=== PATIENT | female | born 1985 ===

== ENCOUNTER 2019-06-05 22:37 | Inpatient (IN) | payer BC ==
[~2019-06-05] VITALS: Ht 165.1 cm; Wt 94.5 kg
[2019-06-05] MEDS ORDERED: SODIUM CHLORIDE 0.45% 1,000 ML IV PRN (23:55)
[2019-06-06] MEDS ORDERED: DEXAMETHASONE 4 MG/ML, 5ML IM SCH
[2019-06-06] MEDS ORDERED: CALCIUM GLUCONATE 4.6 MEQ/10 ML IV PRN
[2019-06-06] MEDS ORDERED: MAGNESIUM SULFATE PMX 2GM/50ML 50 ML IVPB ONE
[2019-06-06] MEDS ORDERED: MAGNESIUM SULFATE PMX 4GM/100M 100 ML IVPB ONE
[2019-06-06 00:01] LABS: BASOPHILS # (AUTO) 0.02 x10^3/uL (0-0.1); BASOPHILS % (AUTO) 0 % (0-1); EOSINOPHILS # (AUTO) 0.14 x10^3/uL (0-0.4); EOSINOPHILS % (AUTO) 1 % (1-7); LYMPHOCYTES % (AUTO) 26 % (22-44); MD NO; MEAN CORPUSCULAR HEMOGLOBIN 31.5 pg (27.0-34.8); MEAN CORPUSCULAR HGB CONC 33.6 g/dL (32.4-35.8); MEAN CORPUSCULAR VOLUME 93.8 fL (80-100); MEAN PLATELET VOLUME 10.1 fL (7.4-10.4); MONOCYTES # (AUTO) 0.72 x10^3/uL (0.2-0.8); MONOCYTES % (AUTO) 6 % (2-9); NEUTROPHILS # (AUTO) 7.52 x10^3/uL (1.8-6.8); NEUTROPHILS % (AUTO) 66 % (42-75); PLATELET COUNT 177 x10^3/uL (130-400); RED BLOOD COUNT 4.42 x10^6/uL (3.82-5.3)
[2019-06-06] MEDS ORDERED: MAGNESIUM SULF. PMX 20GM/500ML 500 ML IV ONE ×3 (00:06→16:52)
[2019-06-06 00:08] LABS: ALANINE AMINOTRANSFERASE 16 U/L (12-78); ALBUMIN 2.4 g/dL (3.4-5.0); ANION GAP 8 mmol/L (5-15); CALCIUM 9.4 mg/dL (8.5-10.1); CHLORIDE 108 mmol/L (98-107); CREATININE 0.51 mg/dL (0.55-1.02)
[2019-06-06 00:12] LABS: ALKALINE PHOSPHATASE 101 U/L (45-117); BILIRUBIN,TOTAL 0.2 mg/dL (0.2-1.0); TOTAL PROTEIN 5.7 g/dL (6.4-8.2)
[2019-06-06] MEDS ORDERED: BETAMETHASONE 6 MG/ML, 5ML IM ONE ×2 (00:13)
[2019-06-06] MEDS ORDERED: PROMETHAZINE 25MG TABLET PO PRN (00:30)
[2019-06-06] MEDS ORDERED: ONDANSETRON ODT 4 MG PO PRN (00:30)
[2019-06-06] MEDS: BETAMETHASONE 6 MG/ML, 5ML IM SCH (00:38)
[2019-06-06] MEDS: LACTATED RINGERS 1,000 ML IV PRN ×3 (00:39→23:51)
[2019-06-06] MEDS: MAGNESIUM SULF. PMX 20GM/500ML 500 ML IV SCH ×3 (00:43→16:56)
[2019-06-06] MEDS ORDERED: ONDANSETRON 2MG/ML, 2ML ONE ×3 (00:56→09:51)
[2019-06-06] MEDS: ONDANSETRON 2MG/ML, 2ML IVPush PRN ×2 (00:59→09:54)
[2019-06-06] MEDS ORDERED: LABETALOL 100 MG TABLET ONE (07:52)
[2019-06-06] MEDS ORDERED: PRENATAL VIT/IRON/FA 1 EACH TABLET ONE (07:52)
[2019-06-06] MEDS: FOLIC ACID 1 MG TABLET PO SCH (08:19)
[2019-06-06] MEDS: LABETALOL 100 MG TABLET PO SCH ×2 (08:19→18:00)
[2019-06-06] MEDS: PRENATAL VIT/IRON/FA 1 EACH TABLET PO SCH (08:20)
[2019-06-06] MEDS ORDERED: CITALOPRAM 20 MG TABLET PO SCH (09:00)
[2019-06-06 17:18] LABS: BASOPHILS # (AUTO) 0.03 x10^3/uL (0-0.1); BASOPHILS % (AUTO) 0 % (0-1); EOSINOPHILS % (AUTO) 0 % (1-7); LYMPHOCYTES % (AUTO) 10 % (22-44); MD NO; MEAN CORPUSCULAR HEMOGLOBIN 31.5 pg (27.0-34.8); MEAN CORPUSCULAR HGB CONC 33.4 g/dL (32.4-35.8); MEAN CORPUSCULAR VOLUME 94.3 fL (80-100); MONOCYTES # (AUTO) 0.46 x10^3/uL (0.2-0.8); MONOCYTES % (AUTO) 3 % (2-9); NEUTROPHILS # (AUTO) 11.54 x10^3/uL (1.8-6.8); NEUTROPHILS % (AUTO) 86 % (42-75); PLATELET COUNT 192 x10^3/uL (130-400); RED BLOOD COUNT 4.87 x10^6/uL (3.82-5.3); RED CELL DISTRIBUTION WIDTH 13.9 % (9.6-15.2)
[2019-06-06 17:27] LABS: ALANINE AMINOTRANSFERASE 16 U/L (12-78); ALBUMIN 2.9 g/dL (3.4-5.0); ANION GAP 8 mmol/L (5-15); CALCIUM 8.9 mg/dL (8.5-10.1); CHLORIDE 107 mmol/L (98-107)
[2019-06-06 17:30] LABS: ALKALINE PHOSPHATASE 120 U/L (45-117); BILIRUBIN,TOTAL 0.3 mg/dL (0.2-1.0); CREATININE 0.69 mg/dL (0.55-1.02); TOTAL PROTEIN 6.6 g/dL (6.4-8.2)
[2019-06-06] MEDS ORDERED: ACETAMINOPHEN 325 MG TABLET ONE (18:11)
[2019-06-06] MEDS: ACETAMINOPHEN 325 MG TABLET PO PRN (18:13)
[2019-06-06] MEDS: CITALOPRAM 20 MG TABLET PO SCH (21:04)
[2019-06-06 21:06] VITALS: BP 139/80
[2019-06-07] MEDS: BETAMETHASONE 6 MG/ML, 5ML IM SCH
[2019-06-07] MEDS ORDERED: MAGNESIUM SULF. PMX 20GM/500ML 500 ML IV ONE ×3 (00:20→15:32)
[2019-06-07] MEDS: MAGNESIUM SULF. PMX 20GM/500ML 500 ML IV SCH ×4 (00:27→17:58)
[2019-06-07 07:31] LABS: BASOPHILS # (AUTO) 0.02 x10^3/uL (0-0.1); BASOPHILS % (AUTO) 0 % (0-1); EOSINOPHILS % (AUTO) 0 % (1-7); LYMPHOCYTES # (AUTO) 1.47 x10^3/uL (1-3.4); LYMPHOCYTES % (AUTO) 10 % (22-44); MD NO; MEAN CORPUSCULAR HEMOGLOBIN 32.1 pg (27.0-34.8); MEAN CORPUSCULAR VOLUME 94.4 fL (80-100); MEAN PLATELET VOLUME 9.9 fL (7.4-10.4); MONOCYTES # (AUTO) 0.37 x10^3/uL (0.2-0.8); MONOCYTES % (AUTO) 3 % (2-9); NEUTROPHILS # (AUTO) 12.67 x10^3/uL (1.8-6.8); NEUTROPHILS % (AUTO) 87 % (42-75); PLATELET COUNT 190 x10^3/uL (130-400); RED BLOOD COUNT 4.49 x10^6/uL (3.82-5.3)
[2019-06-07 07:42] LABS: ALANINE AMINOTRANSFERASE 15 U/L (12-78); ALBUMIN 2.6 g/dL (3.4-5.0); ANION GAP 9 mmol/L (5-15); CHLORIDE 108 mmol/L (98-107); CREATININE 0.57 mg/dL (0.55-1.02)
[2019-06-07 07:44] LABS: ALKALINE PHOSPHATASE 114 U/L (45-117); BILIRUBIN,TOTAL 0.3 mg/dL (0.2-1.0); TOTAL PROTEIN 6.2 g/dL (6.4-8.2)
[2019-06-07] MEDS ORDERED: PRENATAL VIT/IRON/FA 1 EACH TABLET ONE (08:18)
[2019-06-07] MEDS: PRENATAL VIT/IRON/FA 1 EACH TABLET PO SCH (08:19)
[2019-06-07] MEDS ORDERED: ACETAMINOPHEN 325 MG TABLET ONE (10:56)
[2019-06-07] MEDS: ACETAMINOPHEN 325 MG TABLET PO PRN (10:58)
[2019-06-07] MEDS: LACTATED RINGERS 1,000 ML IV PRN (15:37)
[2019-06-07] MEDS ORDERED: niFEDipine ER 30 MG TABLET.ER ONE (15:44)
[2019-06-07] MEDS: niFEDipine ER 30 MG TABLET.ER PO SCH (15:49)
[2019-06-07] MEDS: FOLIC ACID 1 MG TABLET PO SCH (23:23)
[2019-06-07] MEDS: CITALOPRAM 20 MG TABLET PO SCH (23:24)
[2019-06-08] MEDS ORDERED: CALCIUM CARBONATE 500 MG TAB.CHEW ONE (01:22)
[2019-06-08] MEDS ORDERED: CALCIUM CARBONATE 500 MG TAB.CHEW PO PRN (01:30)
[2019-06-08] MEDS ORDERED: MAGNESIUM SULF. PMX 20GM/500ML 500 ML IV ONE ×3 (01:49→17:38)
[2019-06-08] MEDS: MAGNESIUM SULF. PMX 20GM/500ML 500 ML IV SCH ×3 (01:53→17:44)
[2019-06-08] MEDS: LACTATED RINGERS 1,000 ML IV PRN ×2 (07:14→17:45)
[2019-06-08] MEDS ORDERED: PRENATAL VIT/IRON/FA 1 EACH TABLET ONE (12:00)
[2019-06-08] MEDS ORDERED: FOLIC ACID 1 MG TABLET ONE (12:00)
[2019-06-08] MEDS: PRENATAL VIT/IRON/FA 1 EACH TABLET PO SCH (12:05)
[2019-06-08] MEDS: FOLIC ACID 1 MG TABLET PO SCH (12:06)
[2019-06-08] MEDS ORDERED: ONDANSETRON 2MG/ML, 2ML ONE (12:36)
[2019-06-08] MEDS: ONDANSETRON 2MG/ML, 2ML IVPush PRN (12:37)
[2019-06-08] MEDS ORDERED: niFEDipine ER 30 MG TABLET.ER ONE (15:30)
[2019-06-08] MEDS: niFEDipine ER 30 MG TABLET.ER PO SCH (15:50)
[2019-06-08] MEDS ORDERED: MISOPROSTOL 25 MCG TABLET ONE ×2 (18:38→22:42)
[2019-06-08] MEDS ORDERED: FENTANYL/BUPIV./NS/PF 250 ML EPIDCONT SCH (18:56)
[2019-06-08] MEDS ORDERED: MISOPROSTOL 25 MCG TABLET PO PRN ×2 (19:00→23:00)
[2019-06-08] MEDS ORDERED: PENICILLIN GK 5,000,000 UNITS in DEXTROSE 5% 100 ML IVPB ONE (19:00)
[2019-06-08] MEDS ORDERED: FAMOTIDINE 20 MG TABLET ONE (19:37)
[2019-06-08] MEDS: CITALOPRAM 20 MG TABLET PO SCH (19:40)
[2019-06-08] MEDS: FAMOTIDINE 20 MG TABLET PO SCH (19:40)
[2019-06-08] MEDS ORDERED: FENTANYL PF 500 MCG, BUPIVACAINE/PF 0.5%, 30ML 62.5 ML in SODIUM CHLORIDE 0.9% 177.5 ML EPIDCONT SCH (20:00)
[2019-06-08] MEDS ORDERED: PENICILLIN GK 2,500,000 UNITS in DEXTROSE 5% 100 ML IVPB SCH (23:30)
[2019-06-09] MEDS: MAGNESIUM SULF. PMX 20GM/500ML 500 ML IV SCH ×2 (01:16→10:05)
[2019-06-09] MEDS ORDERED: OXYTOCIN 30U/ 0.9% NaCL 500ML 500 ML IV PRN (03:58)
[2019-06-09] MEDS ORDERED: OXYTOCIN 30U/ 0.9% NaCL 500ML 500 ML ONE ×2 (04:02→17:28)
[2019-06-09] MEDS ORDERED: ONDANSETRON 2MG/ML, 2ML ONE ×2 (07:35→18:36)
[2019-06-09] MEDS: ONDANSETRON 2MG/ML, 2ML IVPush PRN ×2 (07:38→18:39)
[2019-06-09] MEDS ORDERED: LACTATED RINGERS 1,000 ML IV SCH (07:59)
[2019-06-09] MEDS ORDERED: EPHEDRINE 50 MG/ML, 1ML IVPush PRN (08:00)
[2019-06-09] MEDS ORDERED: NALOXONE 0.4 MG/ML, 1ML IVPush PRN (08:00)
[2019-06-09] MEDS ORDERED: LACTATED RINGERS 1,000 ML IVBOLUS PRN (08:00)
[2019-06-09 08:14] LABS: BASOPHILS # (AUTO) 0.02 x10^3/uL (0-0.1); BASOPHILS % (AUTO) 0 % (0-1); EOSINOPHILS # (AUTO) 0.13 x10^3/uL (0-0.4); EOSINOPHILS % (AUTO) 1 % (1-7); LYMPHOCYTES # (AUTO) 2.81 x10^3/uL (1-3.4); LYMPHOCYTES % (AUTO) 21 % (22-44); MD NO; MEAN CORPUSCULAR HEMOGLOBIN 32.1 pg (27.0-34.8); MEAN CORPUSCULAR HGB CONC 33.8 g/dL (32.4-35.8); MEAN CORPUSCULAR VOLUME 94.9 fL (80-100); MEAN PLATELET VOLUME 9.1 fL (7.4-10.4); MONOCYTES # (AUTO) 1.08 x10^3/uL (0.2-0.8); MONOCYTES % (AUTO) 8 % (2-9); NEUTROPHILS # (AUTO) 9.31 x10^3/uL (1.8-6.8); NEUTROPHILS % (AUTO) 70 % (42-75); PLATELET COUNT 184 x10^3/uL (130-400); RED BLOOD COUNT 4.65 x10^6/uL (3.82-5.3)
[2019-06-09] MEDS ORDERED: FENTANYL PF 100 MCG/2ML ONE (08:18)
[2019-06-09 08:22] LABS: ALANINE AMINOTRANSFERASE 22 U/L (12-78); ALBUMIN 2.5 g/dL (3.4-5.0); ANION GAP 8 mmol/L (5-15); CALCIUM 7.1 mg/dL (8.5-10.1); CHLORIDE 107 mmol/L (98-107); CREATININE 0.51 mg/dL (0.55-1.02)
[2019-06-09 08:24] LABS: ALKALINE PHOSPHATASE 111 U/L (45-117); BILIRUBIN,TOTAL 0.4 mg/dL (0.2-1.0); TOTAL PROTEIN 5.9 g/dL (6.4-8.2)
[2019-06-09] MEDS ORDERED: EPINEPHRINE IV SCH (08:30)
[2019-06-09] MEDS ORDERED: FENTANYL PF 100 MCG/2ML IVPush PRN (08:30)
[2019-06-09] MEDS ORDERED: [UNRECOGNIZED DRUG - OTHER] IV SCH (08:30)
[2019-06-09] MEDS ORDERED: SODIUM CHLORIDE IV SCH (08:30)
[2019-06-09] MEDS ORDERED: BUPIVACAINE IV SCH (08:30)
[2019-06-09] MEDS ORDERED: FENTANYL IV SCH (08:30)
[2019-06-09] MEDS: LACTATED RINGERS 1,000 ML IVBOLUS PRN (08:43)
[2019-06-09] MEDS ORDERED: LIDOCAINE/PF 1.5% EPI 1:200K, 10 ML ONE (08:57)
[2019-06-09] MEDS ORDERED: BUPIVACAINE 0.25% ONE (08:57)
[2019-06-09] MEDS: PENICILLIN GK 2,500,000 UNITS in DEXTROSE 5% 100 ML IVPB SCH ×2 (09:08→14:04)
[2019-06-09] MEDS ORDERED: MAGNESIUM SULF. PMX 20GM/500ML 500 ML IV ONE (09:29)
[2019-06-09] MEDS ORDERED: EPHEDRINE 50 MG/ML, 1ML ONE (09:51)
[2019-06-09] MEDS ORDERED: OXYTOCIN 30U/ 0.9% NaCL 500ML 500 ML IV SCH (17:08)
[2019-06-09] MEDS ORDERED: ACETAMINOPHEN 325 MG TABLET PO PRN (17:30)
[2019-06-09] MEDS ORDERED: CARBOPROST TROMETHAMINE 250 MCG/ML, 1ML IM PRN (17:30)
[2019-06-09] MEDS ORDERED: SIMETHICONE 80 MG CHEW TAB PO PRN (17:30)
[2019-06-09] MEDS ORDERED: OXYcodone IR 5MG TABLET PO PRN (17:30)
[2019-06-09] MEDS ORDERED: MISOPROSTOL 200 MCG TABLET PR PRN (17:30)
[2019-06-09] MEDS ORDERED: NEWBORN KIT ONE (17:37)
[2019-06-09] MEDS ORDERED: OXYcodone IR 5MG TABLET ONE (20:04)
[2019-06-09] MEDS ORDERED: FAMOTIDINE 20 MG TABLET ONE (22:37)
[2019-06-09] MEDS ORDERED: DOCUSATE 100 MG CAPSULE ONE (22:37)
[2019-06-09] MEDS: FAMOTIDINE 20 MG TABLET PO SCH (22:40)
[2019-06-09] MEDS: CITALOPRAM 20 MG TABLET PO SCH (22:41)
[2019-06-09] MEDS ORDERED: niFEDipine ER 30 MG TABLET.ER ONE (22:52)
[2019-06-09] MEDS: niFEDipine ER 30 MG TABLET.ER PO SCH (22:53)
[2019-06-09] MEDS ORDERED: OXYcodone/APAP 5/325MG TABLET ONE (23:11)
[2019-06-09] MEDS: OXYcodone/APAP 5/325MG TABLET PO PRN (23:19)
[2019-06-10] MEDS: MAGNESIUM SULF. PMX 20GM/500ML 500 ML IV SCH ×2 (01:28→09:52)
[2019-06-10] MEDS ORDERED: OXYTOCIN 30U/ 0.9% NaCL 500ML 500 ML ONE (02:54)
[2019-06-10] MEDS: LACTATED RINGERS 1,000 ML IVBOLUS PRN (02:56)
[2019-06-10 06:16] LABS: BASOPHILS # (AUTO) 0.03 x10^3/uL (0-0.1); BASOPHILS % (AUTO) 0 % (0-1); EOSINOPHILS # (AUTO) 0.13 x10^3/uL (0-0.4); EOSINOPHILS % (AUTO) 1 % (1-7); LYMPHOCYTES # (AUTO) 3.18 x10^3/uL (1-3.4); LYMPHOCYTES % (AUTO) 21 % (22-44); MD NO; MEAN CORPUSCULAR HEMOGLOBIN 31.7 pg (27.0-34.8); MEAN CORPUSCULAR HGB CONC 33.6 g/dL (32.4-35.8); MEAN CORPUSCULAR VOLUME 94.2 fL (80-100); MEAN PLATELET VOLUME 9.5 fL (7.4-10.4); MONOCYTES # (AUTO) 0.81 x10^3/uL (0.2-0.8); MONOCYTES % (AUTO) 5 % (2-9); NEUTROPHILS # (AUTO) 10.92 x10^3/uL (1.8-6.8); NEUTROPHILS % (AUTO) 73 % (42-75); PLATELET COUNT 173 x10^3/uL (130-400); RED BLOOD COUNT 4.24 x10^6/uL (3.82-5.3); RED CELL DISTRIBUTION WIDTH 13.1 % (9.6-15.2)
[2019-06-10 06:28] LABS: ALANINE AMINOTRANSFERASE 21 U/L (12-78); ALBUMIN 2.2 g/dL (3.4-5.0); ANION GAP 7 mmol/L (5-15); CALCIUM 7.3 mg/dL (8.5-10.1); CHLORIDE 106 mmol/L (98-107); CREATININE 0.58 mg/dL (0.55-1.02)
[2019-06-10 06:31] LABS: ALKALINE PHOSPHATASE 105 U/L (45-117); BILIRUBIN,TOTAL 0.3 mg/dL (0.2-1.0); TOTAL PROTEIN 5.5 g/dL (6.4-8.2)
[2019-06-10 08:10] VITALS: BP 133/87
[2019-06-10] MEDS ORDERED: PRENATAL VIT/IRON/FA 1 EACH TABLET ONE (08:20)
[2019-06-10] MEDS ORDERED: DOCUSATE 100 MG CAPSULE ONE (08:21)
[2019-06-10] MEDS ORDERED: FOLIC ACID 1 MG TABLET ONE (08:21)
[2019-06-10] MEDS: PRENATAL VIT/IRON/FA 1 EACH TABLET PO SCH (08:22)
[2019-06-10] MEDS: FOLIC ACID 1 MG TABLET PO SCH (08:22)
[2019-06-10] MEDS: DOCUSATE 100 MG CAPSULE PO PRN ×2 (08:22→21:10)
[2019-06-10] MEDS ORDERED: OXYcodone/APAP 5/325MG TABLET ONE ×2 (13:23→21:05)
[2019-06-10] MEDS: OXYcodone/APAP 5/325MG TABLET PO PRN ×2 (13:27→21:10)
[2019-06-10] MEDS ORDERED: niFEDipine ER 30 MG TABLET.ER ONE (16:08)
[2019-06-10] MEDS ORDERED: FAMOTIDINE 20 MG TABLET ONE (20:25)
[2019-06-10] MEDS ORDERED: niFEDipine ER 60 MG TABLET.ER PO ONE (20:25)
[2019-06-10] MEDS: niFEDipine ER 60 MG TABLET.ER PO SCH (20:29)
[2019-06-10] MEDS: FAMOTIDINE 20 MG TABLET PO SCH (20:29)
[2019-06-10] MEDS: CITALOPRAM 20 MG TABLET HOMEMEDPO SCH (20:35)
[2019-06-11] MEDS: MAGNESIUM SULF. PMX 20GM/500ML 500 ML IV SCH (03:01)
[2019-06-11] MEDS ORDERED: niFEDipine ER 30 MG TABLET.ER PO SCH (09:00)
[2019-06-11] MEDS ORDERED: DOCUSATE 100 MG CAPSULE ONE (11:19)
[2019-06-11] MEDS ORDERED: OXYcodone/APAP 5/325MG TABLET ONE (11:19)
[2019-06-11] MEDS ORDERED: PRENATAL VIT/IRON/FA 1 EACH TABLET ONE (11:19)
[2019-06-11] MEDS ORDERED: FOLIC ACID 1 MG TABLET ONE (11:20)
[2019-06-11] MEDS: OXYcodone/APAP 5/325MG TABLET PO PRN (11:22)
[2019-06-11] MEDS: PRENATAL VIT/IRON/FA 1 EACH TABLET PO SCH (11:22)
[2019-06-11] MEDS: DOCUSATE 100 MG CAPSULE PO PRN (11:23)
[2019-06-11] MEDS: FOLIC ACID 1 MG TABLET PO SCH (11:23)
[2019-06-11 11:25] VITALS: BP 142/87
[2019-06-11] MEDS ORDERED: niFEDipine ER 60 MG TABLET.ER PO ONE (20:32)
[2019-06-11] MEDS: niFEDipine ER 60 MG TABLET.ER PO SCH (20:35)
[2019-06-11] MEDS ORDERED: CITALOPRAM 20 MG TABLET ONE (21:32)
[2019-06-11] MEDS ORDERED: FAMOTIDINE 20 MG TABLET ONE (21:32)
[2019-06-11] MEDS: FAMOTIDINE 20 MG TABLET PO SCH (21:34)
[2019-06-11] MEDS: CITALOPRAM 20 MG TABLET HOMEMEDPO SCH (21:34)
[2019-06-12 06:25] LABS: BASOPHILS # (AUTO) 0.03 x10^3/uL (0-0.1); BASOPHILS % (AUTO) 0 % (0-1); EOSINOPHILS % (AUTO) 3 % (1-7); LYMPHOCYTES # (AUTO) 3.26 x10^3/uL (1-3.4); LYMPHOCYTES % (AUTO) 27 % (22-44); MD NO; MEAN CORPUSCULAR HEMOGLOBIN 32.2 pg (27.0-34.8); MEAN CORPUSCULAR VOLUME 94.5 fL (80-100); MEAN PLATELET VOLUME 8.9 fL (7.4-10.4); MONOCYTES # (AUTO) 0.83 x10^3/uL (0.2-0.8); MONOCYTES % (AUTO) 7 % (2-9); NEUTROPHILS # (AUTO) 7.43 x10^3/uL (1.8-6.8); NEUTROPHILS % (AUTO) 62 % (42-75); PLATELET COUNT 205 x10^3/uL (130-400); RED BLOOD COUNT 4.27 x10^6/uL (3.82-5.3); RED CELL DISTRIBUTION WIDTH 13.7 % (9.6-15.2)
[2019-06-12 06:27] LABS: ALBUMIN 2.4 g/dL (3.4-5.0); ANION GAP 6 mmol/L (5-15); CALCIUM 9.5 mg/dL (8.5-10.1); CHLORIDE 108 mmol/L (98-107)
[2019-06-12 06:32] LABS: ALANINE AMINOTRANSFERASE 24 U/L (12-78); ALKALINE PHOSPHATASE 91 U/L (45-117); BILIRUBIN,TOTAL 0.3 mg/dL (0.2-1.0); CREATININE 0.62 mg/dL (0.55-1.02); TOTAL PROTEIN 6.1 g/dL (6.4-8.2)
[2019-06-12 07:15] VITALS: BP 132/80
[2019-06-12] MEDS ORDERED: PRENATAL VIT/IRON/FA 1 EACH TABLET ONE (08:53)
[2019-06-12] MEDS: FOLIC ACID 1 MG TABLET PO SCH (09:56)
[2019-06-12] MEDS: PRENATAL VIT/IRON/FA 1 EACH TABLET PO SCH (09:56)
[2019-06-12] MEDS: FAMOTIDINE 20 MG TABLET PO SCH (09:56)
[2019-06-12 11:45] VITALS: BP 135/84
[2019-06-12] MEDS ORDERED: NIFE60TA2 PO (17:50)
[2019-06-12] MEDS: niFEDipine ER 60 MG TABLET.ER PO SCH (18:16)
== END 2019-06-12 18:30 | disposition home or self-care (01) | DRG 807 ==
LOC: LDIP 22:37 → 2NE 06-09 20:36 → 2NW 06-12 12:33
PROVIDERS: ADMIT Obstetrics & Gynecology Maternal & Fetal Medicine; ATTEND Obstetrics & Gynecology Maternal & Fetal Medicine
PROC: 10E0XZZ Delivery of Products of Conception, External Approach (ICD-10-PCS; principal; 2019-06-09)
PROC: 10907ZC Drainage of Amniotic Fluid, Therapeutic from Products of Conception, Via Natural or Artificial Opening (ICD-10-PCS; 2019-06-09)
PROC: 3E033VJ Introduction of Other Hormone into Peripheral Vein, Percutaneous Approach (ICD-10-PCS; 2019-06-09)
PROC: 3E0R3BZ Introduction of Anesthetic Agent into Spinal Canal, Percutaneous Approach (ICD-10-PCS; 2019-06-09)
PROC: 00HU33Z Insertion of Infusion Device into Spinal Canal, Percutaneous Approach (ICD-10-PCS; 2019-06-09)
DX: O14.14 Severe pre-eclampsia complicating childbirth (principal); Z37.0 Single live birth; O36.5930 Maternal care for other known or suspected poor fetal growth, third trimester, not applicable or unspecified; O99.214 Obesity complicating childbirth; E66.9 Obesity, unspecified; Z3A.31 31 weeks gestation of pregnancy; Z90.49 Acquired absence of other specified parts of digestive tract; Z88.8 Allergy status to other drugs, medicaments and biological substances
CPT/HCPCS: 36415; Q0169; 76815; 80053; 83615; 83735; 84550; 85025; 86592; 86850; 86900; 88307; G0378; J0702; J2405; J2540; J2590; J3475; J7120